=== PATIENT | male | born 1950 | race Caucasian/White ===

== ENCOUNTER 2025-06-02 08:46 | Outpatient (OUT) | payer MEDICARE, SELFPAY ==
--- OUTSIDE RECORDS SUMMARY | 2025-06-02 08:52 | XMS_ITS | Clinical Summary ---
Author Organization [facility] Address [address] [facility], [address] [place] [address] Care Team Providers Care Sluice Tender Name Role Phone Perri Munoz MD Primary Care Provider [phone] Social History Tobacco Use Types Packs/Day Years Used Date Smoking Tobacco: Never Assessed Sex and Gender Information Value Date Recorded Sex Assigned at Not on file Legal Sex Male 11:53 AM EDT Gender Identity Not on file Sexual Orientation Not on file Last Filed Vital Signs Vital Sign Reading Time Taken Comments Blood Pressure - - Pulse - - Temperature - - Respiratory Rate - - Oxygen Saturation - - Inhaled Oxygen Concentration - - Weight 68 kg (150 lb) 01/05/2023 1:07 PM EDT Height - - Body Mass Index - - Plan of Treatment Health Maintenance Due Date Last Done Comments Depression Screen 1963 Hepatitis C screen 1969 Lipids 1991 Colonoscopy 01/14/1996 Colorectal Cancer Screen 01/14/1996 FIT/FOBT: Average risk 01/14/1996 Fecal-DNA (Cologuard): Average risk 01/14/1996 Sigmoidoscopy/CT colonography 01/14/1996 Pneumococcal 50+ years Vaccine (2 of 2 - PCV20 or PCV21) 05/30/2018 05/30/2017, 08/11/2016 Annual Wellness Visit (Medicare Advantage) 09/04/2024 Flu vaccine (#1) 04/04/2025 06/07/2022, 01/2021, 06/11/2020, Additional history exists COVID-19 Vaccine (2 - 2024- season) 2025 07/21/2022 DTaP/Tdap/Td vaccine (2 - Td or Tdap) 05/15/2025 05/15/2015 Respiratory Syncytial Virus (RSV) or age 60 yrs+ (1 - 1-dose 75+ series) 2026 Shingles vaccine Completed 05/11/2019, 03/04/2019 Hepatitis A vaccine Aged Out No longe r eligible based on patient's age to complete this topic Hepatitis B vaccine Aged Out No longe r eligible based on patient's age to complete this topic Hib vaccine Aged Out No longer eligi ble based on patient's age to complete this topic Meningococcal (ACWY) vaccine Aged Out No longer eligible based on patient's age to complete this topic Meningococcal B vaccine Aged Out No l onger eligible based on patient's age to complete this topic Polio vaccine Aged Out No longer elig ible based on patient's age to complete this topic Insurance MEDICARE Care Teams Sluice Tender Relationship Specialty Start Date End Date Perri Munoz MD [address] [place] [phone] PCP - General Family Medicine 01/02/23
--- OUTSIDE RECORDS SUMMARY | 2025-06-02 08:52 | XMS_ITS | Encounter Summary ---
Author Organization [facility] Address [id number] [address] [place] [address] Care Team Providers Care Tar Man Name Role Phone Perri Munoz MD Primary Care Provider [phone] Encounter Details Date Type Department Care Team (Late st Contact Info) Description 01/18/2023 Orders Only [facility] [place] [address] Transcribe, Orders Support User Pain (Primary Dx) Social History Tobacco Use Types Packs/Day Years Used Date Smoking Tobacco: Never Smokeless Tobacco: Never Alcohol Use Standard Drinks/Week Comments Never 0 (1 standard drink = 0.6 oz pur e alcohol) Childcare Answer Date Recorded Childcare Unknown 02/11/2019 Employment Answer Date Recorded Employment Unknown 02/11/2019 Sex and Gender Information Value Date Recorded Sex Assigned at Not on file Legal Sex Male 12:56 PM EDT Gender Identity Not on file Sexual Orientation Not on file documented as of this encounter Functional Status documented as of this encounter Mental Status * Question Answer Entry Date Author Overall Cognitive Status [facility] 01/19/2023 9:02 AM EDT Marck Cast OTR/L * Question Answer Entry Date Author Overall Cognitive Status [facility] 01/19/2023 9:41 AM EDT Lina Ramires, JUSTIN-CAMPAIGN MARKETING MANAGER documented in this encounter Plan of Treatment Not on file documented as of this encounter Goals Goal Patient Goal Type Associated Problems Recent Progress Patient-Stated? Author Return home General Yes Maryam Villanueva, RN Note: Evaluation of progress towards goal: Plan to return home documented as of this encounter Results * CT brain without contrast stroke alert (01/18/2023 7:00 AM EDT) us Scanning Provider External IMG CT ORDERABLES Fin al Result documented in this encounter Visit Diagnoses Diagnosis Pain- Primary Generalized pain documented in this encounter Care Teams Tar Man Relationship Specialty Start Date End Date Perri Munoz MD [address] [place] [address] PCP - General Family Medicine 01/18/23 documented as of this encounter
--- OUTSIDE RECORDS SUMMARY | 2025-06-02 08:52 | XMS_ITS | Encounter Summary ---
Author Organization [facility] Address [address] [facility], [address] [place] [address] Care Team Providers Care Registered Vascular Technologist (Rvt) Name Role Phone Perri Munoz MD Primary Care Provider [phone] Reason for Referral * Imaging (Routine) - Closed Specialty Diagnoses / Procedures Referred By Contac t Referred To Contact Radiology Diagnoses Elevated prostate specific antigen (PSA) Procedures MRI PROSTATE W WO CONTRAST Yannick Lopez MD Phone: tel: fax: Referral ID Status Reason Start Date Expiration Date Visits Re quested Visits Authorized [id number] Closed 01/05/2023 12/30/2023 1 1 Encounter Details Date Type Department Care Team (Latest Contact Info) Description 12/30/2022 Transcribe Orders [facility] [address] [place] [id number] Yannick Lopez MD [address] [place] [address] Elevated prostate specific antigen (PSA) (Primary Dx) Social History Tobacco Use Types Packs/Day Years Used Date Smoking Tobacco: Never Assessed Sex and Gender Information Value Date Recorded Sex Assigned at Not on file Legal Sex Male 11:53 AM EDT Gender Identity Not on file Sexual Orientation Not on file documented as of this encounter Plan of Treatment Not on file documented as of this encounter Results * MRI PROSTATE W WO CONTRAST (01/05/2023 3:06 PM EDT) Anatomical Region Laterality Modality Abdomen, Pelvis, Hip Magnetic Re sonance 01/05/2023 3:14 PM EDT Impressions 01/09/2023 7:25 AM EDT 1. A 14 x 7 mm left apex posterolateral peripheral zone PI-RADS 3 observation. 2. 6 x 9 mm right mid gland posterolateral peripheral zone PI-RADS 3 observation. 3. In the right mid gland posterior transition zone there is a PI-RADS 2 (atypical nodule) observation. 4. Estimated prostate gland volume 28 mL. Narrative 01/09/2023 7:25 AM EDT EXAMINATION: MULTIPARAMETRIC MRI OF THE PROSTATE WITH AND WITHOUT CONTRAST 01/05/2023: TECHNIQUE: Multiparametric imaging with dynamic contrast enhanced imaging and diffusion weighted imaging was performed. COMPARISON: None. HISTORY: ORDERING SYSTEM PROVIDED HISTORY: Elevated prostate specific antigen (PSA) TECHNOLOGIST PROVIDED HISTORY: STAT Creatinine as needed:->No Reason for Exam: Elevated prostate specific antigen Relevant Medical/Surgical History: CONTRAST WAS BEGUN EARLY ON POST SCANS FINDINGS: The postcontrast portion of the exam is limited due to poor contrast bolus timing. Contrast infusion was begun too early prior to scanning. PROSTATE: 3.5 cm x 4.4 cm x 3.5 cm (estimated volume 28 ml). PERIPHERAL ZONE: 2 lesions (observations) noted. *Lesion 1: Size: 14 x 7 mm. Location: Left apex posterolateral peripheral zone. T2 series 4 image 19. -T2: Non circumscribed rounded area of moderate hypointensity. -Diffusion: Portion of the lesion demonstrates marked ADC hypointensity. ADC image 22. (Minimal high B value DWI hyperintensity series 3, image 76.) PI-RADS score: T2-weighted score 4, diffusion-weighted score 3, dynamic contrast-enhanced score -, overall score 3 Extraprostatic extension: None *Lesion 2: Size: 6 x 9 mm. Location: Right mid gland posterolateral peripheral zone. -T2: A non circumscribed, rounded moderate hypointensity. Axial T2 series 4 image 16. -Diffusion: Focal discrete and different from background hypointensity on ADC and hyperintensity on high B value DWI. (ADC image 19. DWI series 3, image 73.) PI-RADS score: T2-weighted score 3, diffusion-weighted score 3, dynamic contrast-enhanced score -, overall score 3 Extraprostatic extension: None CENTRAL/TRANSITION ZONE: *Lesion 1. Size: 11 x 10 mm. Location: Right mid gland posterior transition. -T2: Homogeneous circumscribed nodule without encapsulation. () -Diffusion: 3. Focal hypointensity on ADC and mild focal hyperintensity at high B value DWI. (ADC image 18. DWI series 3, image 72.) PI-RADS score: T2-weighted score 2, diffusion-weighted score 3, dynamic contrast-enhanced score +, overall score 2 Extraprostatic extension: None Anterior fibromuscular stroma: Unremarkable Urethral sphincter: No significant abnormality evident Seminal vesicles: Unremarkable. Neurovascular bundle: Unremarkable. Lymphadenopathy: No evidence of lymphadenopathy. Bladder: The bladder is unremarkable. Bowel: The visualized bowel is without acute abnormality. Peritoneal cavity: No free fluid. Bones/soft tissues: Normal bone marrow signal intensity. No suspicious or aggressive osseous lesions. Fat containing right inguinal hernia. Procedure Note Jian Khan MD - 01/09/2023 EXAMINATION: MULTIPARAMETRIC MRI OF THE PROSTATE WITH AND WITHOUT CONTRAST 01/05/2023: TECHNIQUE: Multiparametric imaging with dynamic contrast enhanced imaging anddiffusion weighted imaging was performed. COMPARISON: None. HISTORY: ORDERING SYSTEM PROVIDED HISTORY: Elevated prostate specific antigen(PSA) TECHNOLOGIST PROVIDED HISTORY: STAT Creatinine as needed:->No Reason for Exam: Elevated prostate specific antigen Relevant Medical/Surgical History: CONTRAST WAS BEGUN EARLY ON POSTSCANS FINDINGS: The postcontrast portion of the exam is limited due to poor contrastbolus timing. Contrast infusion was begun too early prior to scanning. PROSTATE: 3.5 cm x 4.4 cm x 3.5 cm (estimated volume 28 ml). PERIPHERAL ZONE: 2 lesions (observations) noted. *Lesion 1: Size: 14 x 7 mm. Location: Left apex posterolateral peripheral zone. T2 series 4 image19. -T2: Non circumscribed rounded area of moderate hypointensity. -Diffusion: Portion of the lesion demonstrates marked ADC hypointensity.ADC image 22. (Minimal high B value DWI hyperintensity series 3, image 76.) PI-RADS score: T2-weighted score 4, diffusion-weighted score 3, dynamic contrast-enhanced score -, overall score 3 Extraprostatic extension: None *Lesion 2: Size: 6 x 9 mm. Location: Right mid gland posterolateral peripheral zone. -T2: A non circumscribed, rounded moderate hypointensity. Axial T2 series4 image 16. -Diffusion: Focal discrete and different from background hypointensity onADC and hyperintensity on high B value DWI. (ADC image 19. DWI series 3,image 73.) PI-RADS score: T2-weighted score 3, diffusion-weighted score 3, dynamic contrast-enhanced score -, overall score 3 Extraprostatic extension: None CENTRAL/TRANSITION ZONE: *Lesion 1. Size: 11 x 10 mm. Location: Right mid gland posterior transition. -T2: Homogeneous circumscribed nodule without encapsulation. () -Diffusion: 3. Focal hypointensity on ADC and mild focal hyperintensityat high B value DWI. (ADC image 18. DWI series 3, image 72.) PI-RADS score: T2-weighted score 2, diffusion-weighted score 3, dynamic contrast-enhanced score +, overall score 2 Extraprostatic extension: None Anterior fibromuscular stroma: Unremarkable Urethral sphincter: No significant abnormality evident Seminal vesicles: Unremarkable. Neurovascular bundle: Unremarkable. Lymphadenopathy: No evidence of lymphadenopathy. Bladder: The bladder is unremarkable. Bowel: The visualized bowel is without acute abnormality. Peritoneal cavity: No free fluid. Bones/soft tissues: Normal bone marrow signal intensity. No suspiciousor aggressive osseous lesions. Fat containing right inguinal hernia. IMPRESSION: 1. A 14 x 7 mm left apex posterolateral peripheral zone PI-RADS 3observation. 2. 6 x 9 mm right mid gland posterolateral peripheral zone PI-RADS 3 observation. 3. In the right mid gland posterior transition zone there is a PI-RADS 2 (atypical nodule) observation. 4. Estimated prostate gland volume 28 mL. Yannick Lopez MD IMG MRI ORDERABLES Final Result documented in this encounter Visit Diagnoses Diagnosis Elevated prostate specific antigen (PSA)- Primary Elevated prostate specific antigen (PSA) documented in this encounter Care Teams Registered Vascular Technologist (Rvt) Relationship Specialty Start Date End Date Perri Munoz MD [address] [place] [phone] PCP - General Family Medicine 01/02/23 documented as of this encounter
--- OUTSIDE RECORDS SUMMARY | 2025-06-02 08:52 | XMS_ITS | Clinical Summary ---
Author Organization [facility] Address [id number] [address] [place] [address] Care Team Providers Care Guest Service Team Leader Name Role Phone Perri Munoz MD Primary Care Provider [phone] Allergies No known active allergies Medications omeprazole (PriLOSEC) 40 mg capsule Take 1 capsule (40 mg total) by mouth daily as needed. 01/14/2023 Active [id number]-[id number]-[id number] A-calcium &mins (THERAGRAN-M) 9 mg iron-400 mcg tablet Take 1 tablet by mouth in the morning. Active Active Problems Problem Noted Date Diagnosed Date Gastroesophageal reflux disease 02/27/2023 02/27/2023 Elevated PSA 02/27/2023 02/27/2023 Lumbar radiculopathy 02/27/2023 02/27/2023 Pure hypercholesterolemia 01/19/2023 TIA (transient ischemic attack) 01/18/2023 Numbness of left lower extremity 01/18/2023 Immunizations Immunization Administration Dates Next Due Influenza Vaccine, Quadrivalent, Adjuvanted 12/2021 Influenza, High-dose, Quadrivalent 06/08/2021, Influenza, Im Trivalent Preservative 07/20/2015 Influenza, Trivalent, Adjuvanted 06/24/2019 Influenza, Unspecified 07/15/2016 Pneumococcal Conjugate 13-Valent 05/30/2017,12/0 04/2016 Tdap 05/15/2015 Zoster Vaccine Recombinant 05/11/2019,03/04/2019 Social History Tobacco Use Types Packs/Day Years Used Date Smoking Tobacco: Never Smokeless Tobacco: Never Tobacco Cessation:Counseling Given: Not Answered Alcohol Use Standard Drinks/Week Comments Never 0 [...] Sign Reading Time Taken Comments Blood Pressure 126/84 01/19/2023 11:10 AM EDT Pulse 69 01/19/2023 11:10 AM EDT Temperature 36.8 C (98.3 F) 01/19/2023 11:10 AM EDT Respiratory Rate 17 01/19/2023 11:10 AM EDT Oxygen Saturation 98% 01/19/2023 11:10 AM EDT Inhaled Oxygen Concentration - - Weight 68 kg (149 lb 14.6 oz) 01/18/2023 4:10 PM EDT Height 165 cm (5' 4.96 ) 01/18/2023 4:10 PM EDT Body Mass Index 24.98 01/18/2023 4:10 PM EDT Plan of Treatment Health Maintenance Due Date Last Done Comments Statin Use: Cardiovascular 1950 Depression Screening 1962 Tobacco Screening 1962 Fall Risk Screening 01/14/2016 Adult BMI Screening 01/19/2024 01/18/2023 COVID-19 Vaccine ( - 2024-2 6 season) 2025 07/21/2022, 12/30/2021, 07/07/2021, Additional history exists Influenza Vaccine 05/05/2025 06/07/2022, , 06/11/2020, Additional history exists DTaP,Tdap and Td Vaccines (2 - Td or Tdap) 05/15/2025 05/15/2015 Zoster (Shingles) Vaccine Completed 05/11/2019, 09/2018 Goals Goal Patient Goal Type Associated Problems Recent Progress Patient-Stated? Author Return home General Yes Maryam Villanueva, RN Note: Evaluation of progress towards goal: Plan to return home Medical Devices Not on file Insurance [facility] MEDICARE Advance Directives * Full Code (Latest Code Status on File) Date Activated Date Inactivated Comments 01/18/2023 3:23 PM 01/19/2023 4:28 PM Care Teams Guest Service Team Leader Relationship Specialty Start Date End Date Perri Munoz MD [address] [place] [id number] PCP - General Family Medicine 01/18/23
--- OUTSIDE RECORDS SUMMARY | 2025-06-02 08:52 | XMS_ITS | Clinical Summary ---
Author Organization [facility] Address [address] [place] [address] Care Team Providers Care Mobile Developer Name Role Phone Perri Munoz MD Primary Care Provider [phone] Allergies No known active allergies Medications predniSONE (Deltasone) 10 MG tabletIndication s:Capsulitis of foot Take 2 pills by mouth twice daily for 5 days, take 1 pill twice daily for 5 days then 1 pill once daily for 5 days. 35 tablet 06/13/2023 Active aspirin 81 MG chewable tablet 1 (one) time each day at the same time. Active atorvastatin (Lipitor) 10 MG tablet Take 10 mg by mouth Daily 01/23/2023 Active MULTIPLE VITAMINS PO Take by mouth Active Active Problems No known active problems Family History Medical History Relation Name Comments Heart attack Father Melanoma Neg Hx Relation Name Status Comments Father Mother Social History Tobacco Use Types Packs/Day Years Used Date Smoking Tobacco: Never Smokeless Tobacco: Never Tobacco Cessation:Counseling Given: Not Answered Alcohol Use Standard Drinks/Week Comments Yes 0 (1 standard drink = 0.6 oz pure alcohol) caffeine intake: 3-4 cups per day coffee AUDIT-C Answer Date Recorded Q1: How often do you have a drink containing alc ohol? Monthly or less 11/05/2023 Q2: How many drinks containi ng alcohol do you have on a typical day when you are drinking? 3 or 4 11/05/2023 Q3: How often do you have si x or more drinks on one occasion? Never 11/05/2023 Sex and Gender Information Value Date Recorded Sex Assigned at Not on file Legal Sex Male 8:13 PM EDT Gender Identity Not on file Sexual Orientation Not on file Last Filed Vital Signs Vital Sign Reading Time Taken Comments Blood Pressure - - Pulse - - Temperature - - Respiratory Rate - - Oxygen Saturation - - Inhaled Oxygen Concentration - - Weight 69.1 kg (152 lb 6.4 oz) 03/20/2020 12:00 PM EDT Height 165.1 cm (5' 5 ) 12/07/2022 12:00 PM EDT Body Mass Index 25.36 03/20/2020 12:00 PM EDT Plan of Treatment Upcoming Encounters Date Type Department Care Team (Late st Contact Info) Description 12/11/2025 8:40 AM EDT Office Visit [facility] [address] [place] [phone] Bharati Humphrey APRN-PORCELAIN TECHNICIAN [address] [place] [address] Health Maintenance Due Date Last Done Comments CT Colonography 1950 FIT-DNA 1950 FIT 1950 FOBT 1950 Sigmoidoscopy 1950 Influenza Vaccine (#1) 2025 , 06/09/2023, 06/09/2023, Additional history exists Colonoscopy 07/03/2027 07/03/2017 Colorectal Cancer Screening 07/03/2027 Pneumococcal Vaccine: 65+ Years Completed 05/30/2017, 05/30/2017, 05/30/2017, Additional history exists Insurance [employer] MEDIC[employer] ADVANTAGE Care Teams Mobile Developer Relationship Specialty Start Date End Date Perri Munoz MD [address] [place] [address] PCP - General Internal Medicine 06/13/23
--- NOTE | 2025-06-02 08:55 | XR_ITS ---
The [address] [address] Patient Name: FLORIDALMA HO MRN: [id number] date: 1950 Sex: M Assigned Patient Location: [facility] Current Patient Location: [facility] Accession/Order Number: [id number] Exam Date: 06/02/2025 09:00 Report Date: 06/02/2025 09:31 At the request of: KORI ANTOINE DPDemarcus Procedure: XR foot SHAMA min 3V BILATERAL FEET - 3 views each COMPARISON: Left foot 01/04/2023 CLINICAL DATA: Bilateral foot pain and swelling. No injury. Previous surgery. Weightbearing AP, lateral and oblique views were obtained. Patient is status post bunionectomy bilaterally with dorsal plate and screws. There is also a wedge-shaped metallic device at the first cuneiform on the left and 2 screws through the left talocalcaneal joint. The left-sided hardware was present previously and unchanged. There are no comparison studies from the right. There is no acute fracture or dislocation. There are tiny plantar calcaneal spurs. No significant soft tissue swelling is noted. XR/XR foot SHAMA min 3V IMPRESSION: POSTOPERATIVE CHANGES. NO ACUTE BONY FINDINGS. Impression dictated by: Perri Lombardi M.D. 06/02/2025 9:31 AM Dictation Location: [place] [address] Electronically authenticated by: [id number] Date: 06/02/2025 09:31
== END 2025-06-02 08:47 | disposition home or self-care (01) ==
LOC: RAD 08:50
PROVIDERS: Visit Provider Podiatrist Foot & Ankle Surgery
DX: M79.671 Pain in right foot (principal); M79.672 Pain in left foot; Z98.890 Other specified postprocedural states
CPT/HCPCS: 73630